=== PATIENT | female | born 1935 | race Caucasian/White ===

== ENCOUNTER 2021-05-11 16:59 | Emergency (ER) | payer MEDICARE, BC ==
[~2021-05-11] VITALS: Ht 157.5 cm; Wt 81.8 kg
[2021-05-11 17:58] VITALS: BP 128/61
[2021-05-11] MEDS ORDERED: APIX5TAB3 PO (21:59)
== END 2021-05-11 22:41 | disposition home or self-care (01) ==
LOC: ER 17:01
DX: I82.401 Acute embolism and thrombosis of unspecified deep veins of right lower extremity (principal); Z86.718 Personal history of other venous thrombosis and embolism; Z79.01 Long term (current) use of anticoagulants; Z85.54 Personal history of malignant neoplasm of ureter
CPT/HCPCS: 93971; 99284

== ENCOUNTER 2023-01-13 13:29 | Emergency (ER) | payer BC, MEDICARE, OTHER ==
[~2023-01-13] VITALS: Ht 157.5 cm; Wt 84.1 kg
[~2023-01-13 13:29] MED LIST: APIX5TAB3 PO
[2023-01-13 13:37] VITALS: BP 160/86
== END 2023-01-13 17:57 | disposition home or self-care (01) ==
LOC: ER 13:29
DX: S00.31XA Abrasion of nose, initial encounter (principal); M25.532 Pain in left wrist; W01.0XXA Fall on same level from slipping, tripping and stumbling without subsequent striking against object, initial encounter; Y93.89 Activity, other specified; Y92.89 Other specified places as the place of occurrence of the external cause; Y99.8 Other external cause status
CPT/HCPCS: 29125; 73110; 99284; A4565